=== PATIENT | male | born 1945 | race Caucasian/White ===

== ENCOUNTER 2017-12-28 01:54 | Inpatient (IN) | payer MEDICARE ==
[~2017-12-28] VITALS: Ht 180.3 cm; Wt 82.7 kg
[2017-12-28] VITALS (12 sets, daily range): BP systolic 115–170; BP diastolic 59–89
--- NOTE | ~2017-12-28 | PR ---
[place], [place] PROGRESS NOTE NAME: LENO HOUSTON UNIT #: [id number] ROOM: 422 DOCTOR: JAMES CABALLERO,FRANCOIS BIRTHDATE: [birth year] DOS: 12/29/2017 REASON FOR VISIT: Dizziness. HISTORY OF PRESENT ILLNESS: The patient still had some dizziness, but significantly less compared to yesterday. Denies any chest pain or shortness of breath, no palpitations. His nausea is also significantly better. REVIEW OF SYSTEMS: Review of the 8 systems negative except as mentioned above. PHYSICAL EXAMINATION: VITAL SIGNS: Blood pressure 116/71, pulse 60, respirations 20. Rhythm strips, the patient in sinus rhythm. GENERAL: Alert, comfortable, in no acute distress. HEENT: Pupils are round. NECK: Supple, no distended neck veins. No carotid bruit. CHEST: Nontender. LUNGS: Clear to auscultation bilaterally. HEART: Regular rhythm, no S3. ABDOMEN: Not examined. EXTREMITIES: Showed no edema. Distal pulses are palpable. SKIN: Warm and dry. No cyanosis, no clubbing. NEUROLOGIC: The patient is alert, oriented. No focal neurologic deficit. Medications and labs reviewed as available. IMPRESSION: 1. Dizziness, possibly appears to be vertigo. No orthostasis. 2. History of hypertension, currently blood pressures are stable, off his atenolol. 3. Mild hypokalemia, resolved. RECOMMENDATIONS: 1. The patient appears to be stable from the cardiac standpoint. 2. Blood pressure and heart rates are stable. 3. I would recommend holding his atenolol at this time. 4. Possibly can discontinue IV fluids today and increase his ambulation and he can be discharged home today. 5. The outpatient echo and a possible stress test discussed with him and he is agreeable to have this done as outpatient. 6. Above treatment was discussed with him and his who is at the bedside and all questions answered. 7. Case also discussed with Dr. Bravo. 8. Followup with [facility] Cardiology office at the [facility] in 2-3 weeks after the discharge. 9. If his symptoms either persist gets worse, he may need either ENT or neurologic evaluation. [place], [place] PROGRESS NOTE NAME: LENO HOUSTON UNIT #: [id number] ROOM: [facility] DOCTOR: FRANCOIS RAMIREZ MD BIRTHDATE: [birth year] FRANCOIS RAMIREZ MD CM:PNTRANS [id number] FRANCOIS RAMIREZ MD 12/30/17 0837 interface
--- NOTE | ~2017-12-28 | EKG ---
[place], [place] ELECTROCARDIOGRAM REPORT NAME: LENO HOUSTON UNIT #: [id number] ROOM: 422 DOCTOR: JAMES CABALLERO,FRANCOIS BIRTHDATE: [birth year] DOS: 12/28/2017 TIME; 0234 hours. IMPRESSION: 1. Sinus rhythm. 2. Normal QT interval. 3. No ischemic changes. FRANCOIS RAMIREZ MD CM:EKGRPT:ELECTROCARDIOGRAM REPORT [id number] FRANCOIS RAMIREZ MD
--- NOTE | ~2017-12-28 | CON ---
[place], [place] REPORT OF CONSULTATION NAME: LENO HOUSTON UNIT #: [id number] ROOM: 422 DOCTOR: FRANCOIS RAMIREZ MD BIRTHDATE: [birth year] DOS: 12/28/2017 REASON FOR CONSULTATION: Dizziness and hypertension. HISTORY OF PRESENT ILLNESS: The patient is a 72-year-old male with history of hypertension, came to Emergency Room because of some dizziness with nausea and vomiting. He said this started recently. At home around 12:30 in the morning when he stood up, became dizzy and got sick to his stomach, but he did not pass out . He did have some vomiting. He denied any chest pain, palpitations or syncope. No edema, orthopnea. No fever and chills. No double vision, blurred vision. No neurologic symptoms. No genitourinary symptoms. No musculoskeletal symptoms. The patient does not smoke or drink. He stated that he drinks adequate liquids. He had one episode of some right-sided neck pain and jaw pain at rest. No associated symptoms. He was admitted to the hospital and Cardiology consulted for further cardiac evaluation. His symptoms somewhat improved with Zofran and meclizine. REVIEW OF SYSTEMS: Review of the 10 system negative except as mentioned above. PAST MEDICAL HISTORY: 1. Hypertension. 2. Low back pain. 3. Degenerative arthritis. 4. Adequate hypothyroidism. PAST SURGICAL HISTORY: Nil contributory. SOCIAL HISTORY: The patient does not smoke or drink, does not use illicit drugs. FAMILY HISTORY: Father from sepsis. Mother from dementia. ALLERGIES: The patient is allergic to NAPROXEN. HOME MEDICATIONS: Reviewed. PHYSICAL EXAMINATION: VITAL SIGNS: Blood pressure 115/59, pulse 94, respiration is 20. Weighs 82.6 kilos, BMI 25.4. GENERAL: Alert, comfortable, in no acute distress. HEENT: Pupils round, equal. No jaundice. NECK: Supple, no distended neck veins, no carotid bruit. CHEST: Symmetrical, nontender. LUNGS: Clear to auscultation bilaterally. HEART: Regular rate and rhythm, no S3. Grade 1/6 systolic murmur. No palpable thrills. ABDOMEN: Benign, nontender. Bowel sounds normal. EXTREMITIES: Showed no edema. Distal pulses are palpable. SKIN: Warm and dry. No cyanosis, no clubbing. RECTAL: Deferred. [place], [place] REPORT OF CONSULTATION NAME: LENO HOUSTON UNIT #: [id number] ROOM: 422 DOCTOR: JAMES CABALLERO,FRANCOIS BIRTHDATE: [birth year] GENITOURINARY: Deferred. REVIEW OF THE DIAGNOSTIC TESTS: EKG shows sinus rhythm with some prolonged interval. His labs and imaging studies noted. IMPRESSION: 1. Dizziness with some nausea, possible vertigo, currently is feeling better. 2. Hypertension, stable. 3. History of chronic back pains. 4. Hypothyroidism. RECOMMENDATIONS: 1. His heart rate and blood pressure are stable. 2. Continue current medications including his IV fluids. 3. Check his orthostatic blood pressure and heart rate. 4. Check 2D echo for LV function and valvular function. 5. I would recommend a stress test, which can be done as outpatient. 6. If the patient is stable and 2D echo is unremarkable, he can be discharged home this weekend. 7. If the patient's discharge is on Saturday, then we can do 2D echo as outpatient. 8. Try to avoid any medication that can prolong the QT interval. 9. There is no family at bedside at the time of my examination. FRANCOIS RAMIREZ MD CM:CONSTR:REPORT OF CONSULTATION [id number] 12/28/17 8346 interface
[2017-12-28] MEDS ORDERED: ATENOLOL25 MG PO (02:07)
[2017-12-28] MEDS ORDERED: LEVOTHYROXINE100 MC1 PO (02:07)
[2017-12-28] MEDS ORDERED: MELOXICAM7.5 MG PO ×2 (02:07→08:16)
[2017-12-28] MEDS ORDERED: VITAMIN D32000 UNI1 PO (02:08)
[2017-12-28] MEDS ORDERED: MULTIVITAMINS1 EAC5 PO (02:08)
[2017-12-28] MEDS ORDERED: FISH OIL CONCE1 EACH PO (02:09)
[2017-12-28 02:20] LABS: BASO # 0.1 10*3/uL (0.0-0.1); BASO % 0.6 % (0.0-1.0); EOS # 0.3 10*3/uL (0.0-0.4); EOS % 3.5 % (1.0-4.0); HEMOGLOBIN 13.7 g/dl (14.0-18.0); LYMPH # 2.4 10*3/uL (1.3-4.4); LYMPH % 24.7 % (27.0-41.0); MEAN CELL VOLUME 87.6 fl (80.0-94.0); MEAN CORPUSCULAR HGB 31.6 pg (27.0-31.0); MEAN CORPUSCULAR HGB CONC 36.1 g/dl (33.0-37.0); MEAN PLATELET VOLUME 8.9 fl (9.6-12.3); MONO # 0.8 10*3/uL (0.1-1.0); MONO % 7.8 % (3.0-9.0); NEUT # 6.2 10*3/uL (2.3-7.9); NEUT % 63.1 % (47.0-73.0); PLATELET COUNT AUTOMATED 265 10*3/uL (130-400); RED BLOOD COUNT 4.34 10*6/uL (4.50-5.90); RED CELL DISTRI WIDTH 11.5 % (0-14.5); WHITE BLOOD COUNT 9.8 10*3/uL (4.8-10.8)
[2017-12-28 02:29] LABS: INTERNATIONAL NORM RATIO 0.9 (2.0-3.5)
[2017-12-28 02:42] LABS: ALKALINE PHOSPHATASE 71 U/L (45-117); BUN 17 mg/dl (7-24); CHLORIDE 98 mmol/L (98-107); CREATININE 1.17 mg/dL (0.70-1.30); LIPASE 139 U/L (73-393); POTASSIUM 3.4 mmol/L (3.5-5.1); SGOT/AST 22 IU/L (3-35); SGPT/ALT 25 U/L (12-78); SODIUM 134 mmol/L (136-145)
[2017-12-28 02:44] LABS: TROPONIN I < 0.015 ng/ml (<0.045)
[2017-12-28 03:01] LABS: BILIRUBIN NEGATIVE (NEGATIVE); BLOOD NEGATIVE (NEGATIVE); CLARITY CLEAR (CLEAR); COLOR YELLOW (YELLOW); GLUCOSE NEGATIVE (NEGATIVE); KETONE TRACE (NEGATIVE); LEUKO ESTERASE NEGATIVE (NEGATIVE); NITRITE NEGATIVE (NEGATIVE); PH 7.5 (5.0-9.0); UROBILINOGEN 0.2 E.U./dl (0.2-1.0)
[2017-12-28 03:07] LABS: BACTERIA TRACE; EPITHELIAL CELLS 0-2; RBC 0-2 rbc/hpf (0-2); WBC 0-2 wbc/hpf (0-5)
[2017-12-28 03:13] LABS: URINE AMPHETAMINES < 1000 (1000ng/ml); URINE BARBITURATES < 200 (200ng/ml); URINE BENZODIAZEPINES < 200 (200ng/ml); URINE CANNABINOIDS (THC) < 50 (50ng/ml); URINE COCAINE < 300 (300ng/ml); URINE METHADONE < 300 (300ng/ml); URINE OPIATES < 300 (300ng/ml)
[2017-12-28 03:17] LABS: URINE PHENCYCLIDINE < 25 (25ng/ml)
[2017-12-29] VITALS: BP 119/68
[2017-12-29 06:36] LABS: BASO % 0.4 % (0.0-1.0); EOS # 0.2 10*3/uL (0.0-0.4); EOS % 3.2 % (1.0-4.0); HEMATOCRIT 33.2 % (42.0-52.0); LYMPH # 2.3 10*3/uL (1.3-4.4); LYMPH % 32.6 % (27.0-41.0); MEAN CORPUSCULAR HGB 31.7 pg (27.0-31.0); MEAN CORPUSCULAR HGB CONC 34.6 g/dl (33.0-37.0); MEAN PLATELET VOLUME 9.6 fl (9.6-12.3); MONO # 0.7 10*3/uL (0.1-1.0); MONO % 10.1 % (3.0-9.0); NEUT # 3.7 10*3/uL (2.3-7.9); NEUT % 53.4 % (47.0-73.0); RED BLOOD COUNT 3.63 10*6/uL (4.50-5.90); RED CELL DISTRI WIDTH 11.9 % (0-14.5)
[2017-12-29 06:47] LABS: HEMOGLOBIN 11.5 g/dl (14.0-18.0); MEAN CELL VOLUME 91.5 fl (80.0-94.0); PLATELET COUNT AUTOMATED 165 10*3/uL (130-400)
[2017-12-29 06:53] LABS: ALKALINE PHOSPHATASE 54 U/L (45-117); BUN 9 mg/dl (7-24); CHLORIDE 108 mmol/L (98-107); CHOLESTEROL 199 mg/dL (<200); CREATININE 0.96 mg/dL (0.70-1.30); FREE T4 1.04 ng/dl (0.76-1.46); HDL CHOLESTEROL 49 mg/dl (40-60); LDL CHOLESTEROL 109 mg/dL (9-159); PHOSPHOROUS 2.6 mg/dL (2.5-4.9); POTASSIUM 3.8 mmol/L (3.5-5.1); SGOT/AST 22 IU/L (3-35); SGPT/ALT 22 U/L (12-78); SODIUM 140 mmol/L (136-145); TOTAL PROTEIN 5.5 gm/dL (6.4-8.2); TRIGLYCERIDES 206 mg/dl (<150); VLDL CHOLESTEROL 41 mg/dL (6-40)
[2017-12-29 06:58] LABS: THYROID STIM HORMONE (HS) 0.024 uIU/ml (0.358-4.75)
[2017-12-29 08:00] VITALS: BP 116/61
[2017-12-29 12:00] VITALS: BP 140/70
[2017-12-29] MEDS ORDERED: MECLIZINE HCL25 M2 PO (13:46)
[2017-12-29] MEDS ORDERED: ZOFRAN ODT4 MG SL (13:46)
== END 2017-12-29 14:55 | disposition home or self-care (01) | DRG 392 ==
LOC: ED 01:54 → EDHOLD 06:33 → 4E 06:44
PROVIDERS: Emergency Medicine; Internal Medicine
DX: R11.2 Nausea with vomiting, unspecified (principal); E87.2 Acidosis; E87.1 Hypo-osmolality and hyponatremia; R42 Dizziness and giddiness; D64.9 Anemia, unspecified; D72.810 Lymphocytopenia; E87.6 Hypokalemia; R73.9 Hyperglycemia, unspecified; M19.93 Secondary osteoarthritis, unspecified site; I10 Essential (primary) hypertension; M54.42 Lumbago with sciatica, left side; G89.29 Other chronic pain; M54.41 Lumbago with sciatica, right side; E03.9 Hypothyroidism, unspecified; Z88.8 Allergy status to other drugs, medicaments and biological substances; Z87.891 Personal history of nicotine dependence; Z82.0 Family history of epilepsy and other diseases of the nervous system; Z84.89 Family history of other specified conditions; Z79.899 Other long term (current) drug therapy

== ENCOUNTER 2018-10-01 21:53 | Emergency (ER) | payer MEDICARE ==
[~2018-10-01] VITALS: Wt 81.6 kg
[~2018-10-01 21:53] MED LIST: ATENOLOL25 MG PO; FISH OIL CONCE1 EACH PO; LEVOTHYROXINE100 MC1 PO; MECLIZINE HCL25 M2 PO; MELOXICAM7.5 MG PO; MULTIVITAMINS1 EAC5 PO; VITAMIN D32000 UNI1 PO; ZOFRAN ODT4 MG SL
[2018-10-01] MEDS ORDERED: MOBIC7.5 MG PO (22:21)
[2018-10-01] MEDS ORDERED: ASPIRIN CHEWABL81 MG PO (22:21)
[2018-10-01] MEDS ORDERED: Synthroid,Lev100 MCG PO (22:22)
[2018-10-01] MEDS ORDERED: ATENOLOL25 MG PO (22:22)
[2018-10-01 22:50] LABS: HEMATOCRIT 24.8 % (42.0-52.0); HEMOGLOBIN 8.1 g/dl (14.0-18.0); MEAN CELL VOLUME 98.8 fl (80.0-94.0); MEAN CORPUSCULAR HGB 32.3 pg (27.0-31.0); MEAN CORPUSCULAR HGB CONC 32.7 g/dl (33.0-37.0); MEAN PLATELET VOLUME 9.7 fl (9.6-12.3); NUCLEATED RED BLOOD CELL 0.4 % (0.0-0.0); PLATELET COUNT AUTOMATED 154 10*3/uL (130-400); RED BLOOD COUNT 2.51 10*6/uL (4.50-5.90); RED CELL DISTRI WIDTH 11.9 % (0-14.5); WHITE BLOOD COUNT 10.8 10*3/uL (4.8-10.8)
[2018-10-01 23:10] LABS: ALBUMIN 2.9 gm/dl (3.1-4.5); ATYPICAL LYMPHS 1 % (0-0); BURR CELLS FEW; CREATININE 1.64 mg/dL (0.70-1.30); PLATELET SUFFICIENCY NORMAL (NORMAL); POTASSIUM 3.9 mmol/L (3.5-5.1); TOTAL CELLS COUNTED 100 #CELLS; TOTAL PROTEIN 5.5 gm/dL (6.4-8.2)
[2018-10-01 23:13] LABS: TROPONIN I 0.094 ng/ml (<0.045)
== END 2018-10-02 02:45 | disposition expired ==
LOC: ED 21:53
PROVIDERS: Emergency Medicine Emergency Medical Services
DX: I46.9 Cardiac arrest, cause unspecified (principal); R79.89 Other specified abnormal findings of blood chemistry; I10 Essential (primary) hypertension; E03.9 Hypothyroidism, unspecified; Z88.8 Allergy status to other drugs, medicaments and biological substances; Z79.82 Long term (current) use of aspirin; Z79.899 Other long term (current) drug therapy